=== PATIENT | male | born 1950 | race Caucasian/White ===

== ENCOUNTER 2020-07-15 05:17 | Day surgery (SDC) | payer BC ==
[2020-07-12 14:10] VITALS: BMI 22.1
[2020-07-15 16:09] VITALS: BP 129/80; PULSE 81; TEMP 98.4
== END 2020-07-15 16:15 | disposition home or self-care (01) ==
LOC: JRADIR 05:17
PROVIDERS: ATTEND Internal Medicine Pulmonary Disease
PROC: 0BDD4ZX Extraction of Right Middle Lung Lobe, Percutaneous Endoscopic Approach, Diagnostic (ICD-10-PCS; principal; 2020-07-15)
DX: J84.10 Pulmonary fibrosis, unspecified (principal); J85.0 Gangrene and necrosis of lung; I10 Essential (primary) hypertension; D86.9 Sarcoidosis, unspecified
CPT/HCPCS: 32405; 71045-TC-FY; 77012-TC; 88305-TC; 88312-TC; 88341-TC; 88342-TC

== ENCOUNTER 2020-07-25 10:02 | Emergency (ER) | payer BC | END 2020-07-25 12:14 | disposition home or self-care (01) | LOC: JVIRT 10:02 | DX: Z03.818 Encounter for observation for suspected exposure to other biological agents ruled out (principal) | CPT/HCPCS: C9803; G2012-GT; U0003 ==

== ENCOUNTER 2021-07-30 13:53 | Emergency (ER) | payer BC ==
[2021-07-30 14:20] VITALS: BP 119/80; PULSE 89; TEMP 98.6; BMI 20.7
[2021-07-30] MEDS ORDERED: CASIRIVIMAB/IMDEVIMAB 10 ML in SODIUM CHLORIDE 100 ML IVPB ONE (14:32)
[2021-07-30] MEDS ORDERED: BAMLANIVIMAB 700 MG, ETESEVIMAB 1,400 MG in SODIUM CHLORIDE 100 ML IVPB ONE (15:57)
== END 2021-07-30 18:00 | disposition home or self-care (01) ==
LOC: JCOVINFU 13:53
DX: U07.1 COVID-19 (principal)
CPT/HCPCS: 99284-25; Q0240